=== PATIENT | female | born 1955 | race Caucasian/White ===

== ENCOUNTER 2016-11-29 11:31 | Emergency (ER) | payer BC ==
--- NOTE | 2016-11-29 12:50 | UCPHY ---
H & P Time Seen by Provider: 11/29/16 12:14 Patient Type: Established HPI/ROS: Chief complaint. Sore throat, cough HPI. 61-year-old female presents with sore throat swollen glands for 1 week. Nonproductive cough. Exposed to sick children. Treated for pneumonia 3 weeks ago. She uses Advair as her baseline breathing medication and she has noted some increased need for use of albuterol the last few days. She also has a headache and nausea. No fever ROS Constitutional. no fever/chills, no weakness Eyes. no problems with vision ENT. Sore throat and congestion Cardiovascular. no chest pain Respiratory. Cough Abdominal. Nausea . no problems urinating MS. no calf pain/swelling, no neck/back pain, no joint pain Skin. no rash Lymph. no swollen glands Neuro. Headache Past Medical/Surgical History: Bronchiectasis, hypothyroid, asthma Social History: , nonsmoker, no alcohol Smoking Status: Never smoked Physical Exam: General Appearance: Alert well-developed female mild distress vital signs are stable Eyes: Pupils equal and round no pallor or injection. ENT, tympanic membranes are normal pharynx slightly injected without exudate. Mucous membranes are moist. No significant cervical adenopathy Respiratory: No retractions. Slight end-expiratory rhonchi. Cardiovascular: Regular rate and rhythm. Gastrointestinal: Abdomen is soft and nontender, no masses, bowel sounds normal. Neurological: Awake and alert, sensory and motor exams grossly normal. Skin: Warm and dry, no rashes. Musculoskeletal: Neck is supple nontender. Extremities symmetrical, full range of motion. Psychiatric: Patient is oriented X 3, there is no agitation. Constitutional: Initial Vital Signs Temperature (C) 36.9 C 11/29/16 11:44 Heart Rate 62 11/29/16 11:44 Respiratory Rate 14 11/29/16 11:44 Blood Pressure 101/62 11/29/16 11:44 O2 Sat (%) 96 11/29/16 11:44 O2 Delivery Mode Room Air Allergies/Adverse Reactions: No Known Allergies Allergy (Verified 11/29/16 11:43) Home Medications: Medication Instructions Recorded PROMETRIUM 01/04/10 Proventil 01/04/10 ADVAIR HFA 230-21 MCG INHALER 04/11/16 Synthroid 11/29/16 Vivelle-Dot 0.025MG (*) 11/29/16 Medical Decision Making Procedures: Rapid strep screen negative ED Course/Re-evaluation: On re-evaluation the patient is stable. She and I discussed lab results. She is offered a x-ray of her chest however she declines. I do not really think that she needs one or that will change treatment. She and I discussed treatment plan including criteria for return importance of follow-up and further evaluation. She expresses understanding and agreement. She declines prescription for prednisone Differential Diagnosis: This is likely viral infection. I considered strep throat as well as pneumonia. - Data Points Laboratory Results: 11/29/16 11/29/16 Unknown 11:55 Group A Strep Screen NEGATIVE (NEGATIVE) Group A Strep DNA Pending Departure - Departure Disposition: Home, Routine, Self-Care Clinical Impression: Viral syndrome Condition: Good Instructions: Viral Syndrome (ED) Additional Instructions: Continue the Advair and Proventil. Return for worsening breathing. Recheck with Dr. Smallwood as make in 2-3 days if not improving Referrals: Jay Head MD [Primary Care Provider] - 2-3 days, if not improved - PQRS PQRS Measurement: 134: Depression screening and followup, PRIME MD-PHQ2 (12 years and older) Over the last 2 weeks, how often have you been bothered by any of the following problems? 1. Feeling down, depressed, or hopeless? 2. Little interest or pleasure in doing things? Patient answered no to both 1 and 2 130: Documentation of medications. Reviewed all patient medications, doses, route and frequency. 226: Do you smoke? No.
[2016-11-29 13:03] VITALS: BP 124/73; PULSE 69; RESP 16; TEMP 98.1; O2SAT 95
== END 2016-11-29 13:06 | disposition home or self-care (01) ==
LOC: CED 11:31
DX: B34.9 Viral infection, unspecified (principal); J47.9 Bronchiectasis, uncomplicated; E03.9 Hypothyroidism, unspecified; J45.909 Unspecified asthma, uncomplicated
CPT/HCPCS: 87880-PO; 99214-PO; G0463-PO

== ENCOUNTER → 2016-12-01 | Outpatient (CLI) | payer BC | LOC: FIMAGING 17:24 | PROVIDERS: ATTEND Specialist | DX: R06.00 Dyspnea, unspecified (principal); R91.1 Solitary pulmonary nodule ==

== ENCOUNTER → 2016-12-03 | Outpatient (CLI) | payer BC | LOC: FIMAGING 10:34 | PROVIDERS: ATTEND Specialist | DX: Z13.83 Encounter for screening for respiratory disorder NEC (principal); I25.10 Atherosclerotic heart disease of native coronary artery without angina pectoris ==

== ENCOUNTER 2016-12-05 16:17 | Emergency (ER) | payer BC ==
--- NOTE | 2016-12-05 16:32 | CPEKG ---
Heart Rate: 53 RR Interval: 1132 P-R Interval: 132 QRSD Interval: 82 QT Interval: 476 QTC Interval: 447 P [place]: 67 QRS [place]: 59 T Wave [place]: 53 EKG Severity - ABNORMAL ECG - EKG Impression: SINUS RHYTHM EKG Impression: CONSIDER LEFT VENTRICULAR HYPERTROPHY Electronically Signed By: Shane Viera 06-Dec-2016 10:13:02
[2016-12-05 16:47] VITALS: TEMP 97.9
[2016-12-05] MEDS ORDERED: ASPIRIN 81 MG CHEWABLE TAB PO ONE (17:19)
--- NOTE | 2016-12-05 17:39 | UCPHY ---
H & P Patient Type: Established Chief Complaint Nursing Narrative: pt here for intermittent bilateral non radiating chest pressure and sob x 3 days. pt also states having cough but thinks its residual from having pneumonia which she just finished a month of antibiotics. pt also states having recent chest CT and was noted to have some athrosclerosis. Time Seen by Provider: 12/05/16 16:51 HPI/ROS: CHIEF COMPLAINT: Sense of discomfort across the chest off and on for 3 days HISTORY OF PRESENT ILLNESS: This is a 61-year-old female who has had problems for the last 10 days. Sore throat having been exposed to grandchildren. Her strep results were negative. It was noted that she had had a mild cough and was offered a chest x-ray. Of note is that she was treated on a clinical basis for suspected pneumonia early in October. Those symptoms have pretty much abated until the sore throat started. In the interim some 2 days later she was seen by her baker helper who did not feel or symptoms were allergy related. Thereby chest x-ray was ordered. The chest x -ray showed a questionable nodule thus a CT scan of the chest was performed to further delineate this nodule, 2 days ago. I have reviewed the report. Notably , the nodule was not noted on the CT thereby suggesting was a summation issue. Nonetheless there was some atherosclerosis noted in the coronary arteries, though not graded, as well as mild aortic sclerosis. Furthermore, she does have a problem with chronic anemia and low iron stores in the setting of a chronic idiopathic GI bleed. Thereby every 3-6 months she gets iron infusions with her last being approximately 3 months ago. While her ferritin levels are 27 as a recent blood value, she typically the will receive iron transfusion even in that neighborhood whereby originally she was getting these infusions if her ferritin levels were much lower than that such as 20-22. In the backdrop she has noted even though she is an avid runner that she was having some difficulty over the course of last few months of feeling like she just could not have her usual state of. Approximately a week ago or so she was walking neighborhood pushing a stroller with her grand child and noticed that she just did not seem to have the usual vigor, though this is not accelerating. What prompted her visit today was a sense of discomfort that she has been experiencing over the last 3 days. Typically lasts 30-60 minutes, not related to exertion, subsided spontaneously without particular intervention or rest. Today the discomfort started approximately noon and she contacted her PCP. They discussed a referral to Cardiology and in the interim due to the CT evidence of possible development of atherosclerosis she was sent here for evaluation. Of note whereby the discomfort has been over the last few days lasting 30-60 minutes this particular episode has been ongoing and steady. There has been no associated shortness of breath or diaphoresis. I attempted to explore why she is here is taking much resolved sometime to 3 months ago. While she does report some 'heartburn' she is uncertain if this is recommendation in the setting of the problematic GI bleeding that she has had over the last year. P: No precipitant such as exertion or twisting or bending or taking deep breath Q: Achiness as well as pressure and burning across the upper mid chest R: No radiation into the arms or back or jaw S: Mild T: Started some 3 days ago. Occurring several times a day not exactly be related. Today persistent since noon, approximately 4 hours Cardiac risk factors: Family history. She does not have hypertension, high cholesterol, smoking history, obesity, or diabetes. Pulmonary was risk factors: None Aortic dissection risk factors: None REVIEW OF SYSTEMS: Constitutional: No fever, no chills. Eyes: No discharge ENT: No sore throat. Cardiovascular: See above Respiratory: No cough, shortness of breath, or wheezing. Gastrointestinal: No nausea vomiting or diarrhea. No abdominal pain. Genitourinary: No hematuria or frequency. Musculoskeletal: No back pain. Skin: No rashes. Neurological: No headache. 10 point ROS otherwise negative Source: Patient Exam Limitations: No limitations - Personal History Tetanus Vaccine Date: < 10 years - Medical/Surgical History Hx Asthma: Yes Hx Chronic Respiratory Disease: No Hx Diabetes: No Hx Cardiac Disease: No Hx Renal Disease: No Hx Cirrhosis: No Hx Alcoholism: No Hx HIV/AIDS: No Hx Splenectomy or Spleen Trauma: No Other PMH: hypothyroid, anemia, asthma - Family History Significant Family History: Heart disease (Father who had smoking and diabetes had multiple MIs and on the table for bypass) - Social History Smoking Status: Never smoked Alcohol Use: None Drug Use: None - Physical Exam Exam: General Appearance: Alert, no distress. Afebrile. Normal phonation. No respiratory distress. Thin, petite female. Eyes: Pupils equal and round no pallor or injection. No icterus ENT, Mouth: Mucous membranes moist. Pharynx without erythema or exudate. TM Clear. Neck: No adenopathy. Supple. No JVD. Trachea in midline. Respiratory: There are no retractions, lungs are clear to auscultation. Cardiovascular: Regular rate and rhythm, without murmur. Chest wall nontender. No reproducible chest pain Abdomen: Soft and nontender, no masses, bowel sounds normal. Neurological: Ox3. No motor weakness. Sensation intact. Gait nl. Skin: Warm and dry, no rashes. Musculoskeletal: No joint swelling. Extremities: No edema. Homans sign negative. No cords. Psychiatric: Normal affect. Constitutional: Initial Vital Signs Temperature (C) 36.6 C 12/05/16 16:41 Heart Rate 63 12/05/16 16:41 Respiratory Rate 16 12/05/16 16:41 Blood Pressure 138/80 H 12/05/16 16:41 O2 Sat (%) 98 12/05/16 16:41 O2 Delivery Mode Room Air Allergies/Adverse Reactions: No Known Allergies Allergy (Verified 11/29/16 11:43) Home Medications: Medication Instructions Recorded PROMETRIUM 01/04/10 Proventil 01/04/10 ADVAIR HFA 230-21 MCG INHALER 04/11/16 Synthroid 11/29/16 Vivelle-Dot 0.025MG (*) 11/29/16 Medical Decision Making - Diagnostics EKG Interpretation: EKG. Interpreted by me contemporaneously. Sinus rhythm. Heart rate 53. Voltage criteria for LVH. However ST segments are normal as well as T-wave. No ischemia. Imaging: I reviewed the CT scan report from 2 days ago. ED Course/Re-evaluation: In view of the ongoing discomfort she was given aspirin 324 mg PO. Thereafter she received a GI cocktail consisting of viscous lidocaine with Maalox. This did not seem to improve the discomfort in temporal fashion. Approximately hour later she received nitroglycerin. She did not really care for this sensation and declined to have any more than the 1 single tablet which did not temporally improve her symptoms. However over the course of the next hour at that point in time the symptoms markedly improved. Blood counts were taken compared to priors and she is stable H&H when compared to that of July. Initial troponin was undetectable and a follow-up 1 at 3:00 a.m. was also undetectable. No clinical indication her D-dimer assessment at this time Met with the patient and discussed the rationale approach of outpatient evaluation with strong recommendation for cardiology follow-up being planned for outpatient stress testing. In the interim she should forego any exercise or undue exertion such as lifting. Furthermore she should start taking aspirin 81 mg daily. She have recurrence of symptoms she should present to a local ER. Upon review the case her heart score is as follows: My SCORE HEART: H = Hx Mod 1 E = EKG Nl 0 A = Age 45-64 1 R Risk Factors 1-2 1 T = Troponin Not detected 0 Results: 0-3 1.7% Risk Thereby as her symptoms have resolved and 3 are followup troponin which is essentially is a 7 hour troponins to the onset of symptoms are negative she will be released for outpatient evaluation. 12/06/16: Follow-up courtesy call was placed to the patient. She reports having gone to bed is medically much immediately as soon as she got home and feeling well today with no recurrence of the chest discomfort. She also has a 1 mg of aspirin available at home and has started taking such. She still remains fixed on the prospect of her allergies as well as her low iron stores as being a underlying cause to her symptoms, but nonetheless does plan to follow up with Cardiology in 2 days time when the office is reopened. Differential Diagnosis: Differential diagnosis includes but is not limited to the following: ACS, myocardial infarction, pneumothorax, pleurisy, pulmonary embolus, aortic dissection, anxiety, muscle strain. - Data Points Laboratory Results: Laboratory Results 12/05/16 16:30 12/05/16 16:30 Medications Given: Discontinued Medications Al Hydroxide/Mg Hydroxide (Maalox Susp) 30 ml PO ONCE ONE Stop: 12/05/16 17:41 Last Admin: 12/05/16 18:00 Dose: 30 ml Aspirin (Aspirin) 324 mg PO EDNOW ONE Stop: 12/05/16 17:20 Last Admin: 12/05/16 17:25 Dose: 324 mg Lidocaine (Lidocaine 2% Viscous) 15 ml PO ONCE ONE Stop: 12/05/16 17:41 Last Admin: 12/05/16 18:00 Dose: 15 ml Nitroglycerin (Nitrostat) 0.4 mg SL EDNOW ONE Stop: 12/05/16 19:24 Last Admin: 12/05/16 19:23 Dose: 0.4 mg Departure - Departure Disposition: Home, Routine, Self-Care Clinical Impression: Atypical chest pain Condition: Good Instructions: Chest Pain (ED) Additional Instructions: Beginning tomorrow you take a sprain 81 mg p. o. daily If her symptoms start being associated with sweating or getting worse than you need to go into 1 of the local ERs immediately See the local java groovy developer soon, Call your family doctor on Thursday to arrange such. See our referral. Your hemoglobin/hematocrit numbers from today are as follows: 14.9/44.3. New 9 Hemoglobin/hematocrit numbers from July 28 are as follows: 14.4/43.2. This represents a stable picture of no anemia at this time. While you are able to go for a walk you're not allowed to work out strenuously or push the stroller. Referrals: Vannessa Willis MD [Primary Care Provider] - As per Instructions Inderjit Foote MD [Medical Doctor] - As per Instructions - PQRS PQRS Measurement: NA
[2016-12-05] MEDS ORDERED: LIDOCAINE 2% VISCOUS 15 ML UDCUP PO ONE (17:40)
[2016-12-05] MEDS ORDERED: MAG HYDROX/AL HYDROX/SIMETH 30 ML UDCUP PO ONE (17:40)
[2016-12-05 17:51] LABS: % IMMATURE GRANULYOCYTES 0.1 % (0.0-1.1); ABSOLUTE IMMATURE GRANULOCYTES 0.01 10^3/uL (0.00-0.10); ADD DIFF? NO; ADD MORPH? NO; ADD SCAN? NO; ATYPICAL LYMPHOCYTE FLAG 0 (0-99); FRAGMENT RBC FLAG 0 (0-99); HEMATOCRIT 44.3 % (38.0-47.0); HEMOGLOBIN 14.9 g/dL (12.6-16.3); LEFT SHIFT FLG 0 (0-99); LIPEMIA HEMOLYSIS FLAG 80 (0-99); MEAN CELL HEMOGLOBIN 32.8 pg (27.9-34.1); MEAN CELL HEMOGLOBIN CONCENTR. 33.6 g/dL (32.4-36.7); MEAN CELL VOLUME 97.6 fL (81.5-99.8); MEAN PLATELET VOLUME 9.8 fL (8.7-11.7); PLATELET CLUMPS FLAG 0 (0-99); PLATELET COUNT 321 10^3/uL (150-400); RED BLOOD CELL COUNT 4.54 10^6/uL (4.18-5.33); RED CELL DISTRIBUTION WIDTH 12.9 % (11.5-15.2)
[2016-12-05 18:03] LABS: ANION GAP 14 mEq/L (8-16); CALCIUM 9.8 mg/dL (8.5-10.4); CARBON DIOXIDE 25 mEq/l (22-31); CHLORIDE 101 mEq/L (97-110); CREATININE 0.7 mg/dL (0.6-1.0); GLOMERULAR FILTRATION RATE > 60; GLUCOSE 87 mg/dL (70-100); POTASSIUM 3.8 mEq/L (3.5-5.2); SODIUM 140 mEq/L (134-144)
[2016-12-05 18:17] LABS: TROPONIN I < 0.012 ng/mL (0-0.034)
[2016-12-05] MEDS ORDERED: NITROGLYCERIN 0.4 MG BTL SL ONE ×2 (19:17→19:23)
[2016-12-05 21:40] VITALS: RESP 14
[2016-12-05 21:50] VITALS: BP 114/71; PULSE 56; O2SAT 97
== END 2016-12-05 21:16 | disposition home or self-care (01) ==
LOC: CED 16:17
DX: R07.89 Other chest pain (principal); R06.02 Shortness of breath; R05 Cough; D64.9 Anemia, unspecified; E03.9 Hypothyroidism, unspecified; J45.909 Unspecified asthma, uncomplicated; Z82.49 Family history of ischemic heart disease and other diseases of the circulatory system; Z83.3 Family history of diabetes mellitus
CPT/HCPCS: 80048-PO; 84484-PO; 85025-PO; 93010-PO; 99215-PO; G0463-PO

== ENCOUNTER 2016-12-30 08:47 | Observation (INO) | payer BC ==
[2016-12-30] MEDS ORDERED: NS 1,000 ML IV ONE (08:52)
[2016-12-30] MEDS ORDERED: diphenhydrAMINE 25 MG CAP PO ONE ×2 (08:52→09:14)
[2016-12-30] MEDS ORDERED: DIAZEPAM 5 MG TAB PO ONE (08:52)
[2016-12-30] MEDS ORDERED: ASPIRIN EC 325 MG TAB PO ONE (08:52)
[2016-12-30] MEDS ORDERED: FAMOTIDINE 20 MG TAB PO ONE (08:52)
--- NOTE | 2016-12-30 09:10 | CPEKG ---
Heart Rate: 50 RR Interval: 1200 P-R Interval: 136 QRSD Interval: 80 QT Interval: 460 QTC Interval: 420 P [place]: 61 QRS [place]: 63 T Wave [place]: 60 EKG Severity - ABNORMAL ECG - EKG Impression: SINUS RHYTHM EKG Impression: CONSIDER LEFT VENTRICULAR HYPERTROPHY Electronically Signed By: Kailash Mendoza 31-Dec-2016 14:45:33
[2016-12-30] MEDS ORDERED: FAMOTIDINE 20 MG TAB ONE (09:14)
[2016-12-30] MEDS ORDERED: DIAZEPAM 5 MG TAB ONE (09:14)
[2016-12-30] MEDS ORDERED: ASPIRIN 81 MG CHEWABLE TAB ONE (09:15)
[2016-12-30 09:34] LABS: % IMMATURE GRANULYOCYTES 0.3 % (0.0-1.1); ABSOLUTE IMMATURE GRANULOCYTES 0.02 10^3/uL (0.00-0.10); ADD DIFF? NO; ADD MORPH? NO; ADD SCAN? NO; ATYPICAL LYMPHOCYTE FLAG 20 (0-99); FRAGMENT RBC FLAG 0 (0-99); HEMATOCRIT 44.1 % (38.0-47.0); HEMOGLOBIN 14.4 g/dL (12.6-16.3); LEFT SHIFT FLG 0 (0-99); LIPEMIA HEMOLYSIS FLAG 80 (0-99); MEAN CELL HEMOGLOBIN 32.6 pg (27.9-34.1); MEAN CELL HEMOGLOBIN CONCENTR. 32.7 g/dL (32.4-36.7); MEAN CELL VOLUME 99.8 fL (81.5-99.8); MEAN PLATELET VOLUME 9.6 fL (8.7-11.7); PLATELET CLUMPS FLAG 0 (0-99); PLATELET COUNT 266 10^3/uL (150-400); RED BLOOD CELL COUNT 4.42 10^6/uL (4.18-5.33); RED CELL DISTRIBUTION WIDTH 13.2 % (11.5-15.2)
[2016-12-30 09:42] LABS: INR 1.07 (0.83-1.16); PROTIME(PATIENT) 13.8 SEC (12.0-15.0)
[2016-12-30] MEDS ORDERED: LIDOCAINE 1% 30 ML SDV ONE (09:53)
[2016-12-30] MEDS ORDERED: fentaNYL 100 MCG/2 ML INJ ONE ×2 (09:54→11:54)
[2016-12-30] MEDS ORDERED: HEPARIN 10,000 UNIT/10 ML MDV ONE (09:54)
[2016-12-30] MEDS ORDERED: VERAPAMIL 5 MG/2 ML VIAL ONE (09:54)
[2016-12-30] MEDS ORDERED: MIDAZOLAM 2 MG/2 ML VIAL ONE ×3 (09:54→11:55)
[2016-12-30] MEDS ORDERED: IOPAMIDOL (ISOVUE-370) 150 ML BTL IV ONE (09:54)
[2016-12-30 10:18] LABS: ANION GAP 7 mEq/L (8-16); CALCIUM 9.5 mg/dL (8.5-10.4); CARBON DIOXIDE 29 mEq/l (22-31); CHLORIDE 104 mEq/L (97-110); CHOLESTEROL 155 mg/dL (140-220); CHOLESTEROL/HDL RATIO 1.91 RATIO (1.00-4.44); CREATININE 0.8 mg/dL (0.6-1.0); GLOMERULAR FILTRATION RATE > 60; GLUCOSE 96 mg/dL (70-100); HIGH DENSITY LIPOPROTEIN 81 mg/dL (40-85); LDL/HDL RATIO 0.77 RATIO (1.00-3.22); LOW DENSITY LIPOPROTEIN 62 mg/dL (80-100); MAGNESIUM 2.2 mg/dL (1.6-2.3); NON-HIGH DENSITY LIPOPROTEIN 74 mg/dL (90-129); POTASSIUM 4.2 mEq/L (3.5-5.2); SODIUM 140 mEq/L (134-144); TRIGLYCERIDE 62 mg/dL (35-135); VERY LOW DENSITY LIPOPROTEINS 12 mg/dL (8-25)
[2016-12-30] MEDS ORDERED: NITROGLYCERIN 1,500 MCG/15 ML VIAL MISC ONE (11:03)
[2016-12-30] MEDS ORDERED: ATROPINE SULFATE 1 MG/10 ML SYR ONE (11:18)
[2016-12-30] MEDS ORDERED: CLOPIDOGREL BISULFATE 75 MG TAB ONE (12:24)
--- NOTE | 2016-12-30 12:31 | CPIP ---
[f rep st] INVASIVE CARDIAC PROCEDURE DATE OF PROCEDURE: 12/30/2016 PROCEDURES: 1. Left heart catheterization. 2. Coronary angiography. 3. Left ventriculography. INDICATIONS: New onset angina in a patient with known coronary disease and intermediate risk nuclea r stress test. COMPLICATIONS: None. DESCRIPTION OF PROCEDURE: N.p.o. status was confirmed, informed consent obtained, and timeout perfo rmed. The patient was brought to the catheterization laboratory and prepped and draped in sterile f ashion. Adequate conscious sedation was achieved with Versed and fentanyl IV. 1% lidocaine was use d for local anesthesia of the right groin. Using modified Seldinger technique, a 5-Bulgarian introduce r sheath was placed in the right common femoral artery. JL3.5 and JR4 catheters were used for coron german angiography. Pigtail was used for left ventriculography. FINDINGS: 1. Left main is normal and bifurcates into the LAD and left circumflex. There is approximately 40% mid LAD stenosis. There are 2 principal diagonals. 2. The circumflex is free of any significant disease. There are 2 principle obtuse marginals. 3. Right coronary artery is dominant and free of disease. LEFT VENTRICULOGRAPHY: Left ventricular ejection fraction 65% with normal wall motion. HEMODYNAMICS: Aortic pressure 107/56. LV pressure 102/0 with an end-diastolic pressure of 12. CONCLUSIONS: Intermediate grade LAD lesion. Given the patient's clinical history, concerning exerc ise intolerance, and abnormal stress test, interventional consult was obtained with Dr. Daniels. T his will be performed for further evaluation of the LAD lesion. The patient currently in stable condition. /[id number]/MODL
[2016-12-30] MEDS ORDERED: ATROPINE SULFATE 1 MG/10 ML SYR IVP PRN (12:34)
[2016-12-30] MEDS ORDERED: CLOPIDOGREL BISULFATE 75 MG TAB PO ONE (12:34)
[2016-12-30] MEDS ORDERED: ONDANSETRON 4 MG/2 ML VIAL IVP PRN (12:34)
[2016-12-30] MEDS ORDERED: NITROGLYCERIN 0.4 MG BTL SL PRN (12:34)
--- NOTE | 2016-12-30 12:40 | PDCTREPORT ---
Cardiothoracic Procedure Rpt Cardiothoracic Procedure Report: Procedure: 1. Lad intravascular ultrasound. 2. Primary stenting of the LAD with a 3.0 x 20 mm synergy stent. 3. Post PCI intravascular ultrasound Intervention: I am asked by my partner Dr. Yusuf to perform intravascular ultrasound the proximal LAD in the setting of clinical exertional angina accompanied by abnormal nuclear stress test with anterior ischemia and indeterminate proximal LAD stenosis. Patient was anticoagulated with heparin. Therapeutic ACT was confirmed. Using a 6 [place] EBU 3.5 guiding catheter left main coronary selectively intubated. Using a 0.014 luge wire the LAD was entered and a wire placed in the distal vessel. Intravascular ultrasound was slow pullback was performed. The proximal vessel is heavily calcified. There is a 70% by area stenosis of the proximal LAD. Consultation was obtained with Dr. Yusuf. The setting of symptoms abnormal nuclear stress test was like to proceed with primary stenting. A 3.0 x 20 mm synergy stent was placed on the wire. It was positioned in two views. It was deployed using a single inflation. Repeat intravascular ultrasound revealed the stent to be under deployed in its mid segment. A 3.5 x 12 mm quantum balloon was used to post dilate the stent. Final orthogonal angiograms were obtained. Conclusions: Successful PCI and stenting of the proximal LAD with intravascular ultrasound guidance. Continue dual antiplatelet therapy for at least 3 months. Aggressive secondary prevention. Clinical follow-up Dr. Yusuf. Patient Problems: Problems Problem Status Onset Status post insertion of drug-eluting stent into left anterior descending (LAD) artery Acute Coronary artery disease Acute Angina effort Acute
--- NOTE | 2016-12-30 12:48 | CPEKG ---
Heart Rate: 51 RR Interval: 1176 P-R Interval: 132 QRSD Interval: 84 QT Interval: 456 QTC Interval: 420 P [place]: 66 QRS [place]: 61 T Wave [place]: 47 EKG Severity - NORMAL ECG - EKG Impression: SINUS RHYTHM Electronically Signed By: Kailash Mendoza 31-Dec-2016 14:45:44
--- NOTE | 2016-12-30 13:26 | CPEKG ---
Heart Rate: 54 RR Interval: 1111 P-R Interval: 132 QRSD Interval: 76 QT Interval: 472 QTC Interval: 448 P [place]: 66 QRS [place]: 57 T Wave [place]: 50 EKG Severity - NORMAL ECG - EKG Impression: SINUS RHYTHM Electronically Signed By: Kailash Mendoza 31-Dec-2016 14:45:53
[2016-12-30] MEDS ORDERED: CALCIUM CARBONATE 500 MG CHEWABLE TAB PO ONE (13:30)
[2016-12-30] MEDS ORDERED: ACETAMINOPHEN 325 MG TAB ONE (14:38)
[2016-12-30] MEDS ORDERED: ACETAMINOPHEN 325 MG TAB PO ONE (15:00)
[2016-12-30] MEDS ORDERED: ALBUTEROL 60 PUFFS/8 GM MDI IH PRN (16:05)
[2016-12-30 20:29] VITALS: RESP 16
[2016-12-30] MEDS ORDERED: CALCIUM CARB W/VIT D 500 MG TAB PO SCH (21:00)
[2016-12-30] MEDS ORDERED: MAGNESIUM CITRATE 100 MG PO SCH (21:00)
[2016-12-30] MEDS ORDERED: PROGESTERONE,MICR 100 MG CAP PO SCH (21:00)
[2016-12-30] MEDS ORDERED: PRAMIPEXOLE 0.25 MG TAB PO SCH (21:00)
[2016-12-30] MEDS ORDERED: PANTOPRAZOLE SODIUM 40 MG TAB PO SCH (21:00)
[2016-12-30] MEDS ORDERED: ATORVASTATIN CALCIUM 20 MG TAB PO SCH (21:00)
[2016-12-31] MEDS ORDERED: LEVOTHYROXINE 75 MCG TAB PO SCH (05:00)
[2016-12-31 05:24] VITALS: O2SAT 95
[2016-12-31 05:34] LABS: % IMMATURE GRANULYOCYTES 0.3 % (0.0-1.1); ABSOLUTE IMMATURE GRANULOCYTES 0.02 10^3/uL (0.00-0.10); ADD DIFF? NO; ADD MORPH? NO; ADD SCAN? NO; ATYPICAL LYMPHOCYTE FLAG 10 (0-99); FRAGMENT RBC FLAG 0 (0-99); HEMATOCRIT 41.7 % (38.0-47.0); HEMOGLOBIN 13.8 g/dL (12.6-16.3); LEFT SHIFT FLG 0 (0-99); LIPEMIA HEMOLYSIS FLAG 80 (0-99); MEAN CELL HEMOGLOBIN 32.8 pg (27.9-34.1); MEAN CELL HEMOGLOBIN CONCENTR. 33.1 g/dL (32.4-36.7); MEAN PLATELET VOLUME 9.9 fL (8.7-11.7); PLATELET CLUMPS FLAG 0 (0-99); PLATELET COUNT 264 10^3/uL (150-400); RED BLOOD CELL COUNT 4.21 10^6/uL (4.18-5.33); RED CELL DISTRIBUTION WIDTH 13.2 % (11.5-15.2)
[2016-12-31 05:46] LABS: ALBUMIN 3.5 g/dL (3.5-5.0); ANION GAP 5 mEq/L (8-16); ASPARTATE AMINOTRANSFERASE 32 IU/L (14-46); BILIRUBIN,TOTAL 0.7 mg/dL (0.1-1.4); CALCIUM 9.4 mg/dL (8.5-10.4); CARBON DIOXIDE 25 mEq/l (22-31); CHLORIDE 106 mEq/L (97-110); CREATININE 0.7 mg/dL (0.6-1.0); GLOMERULAR FILTRATION RATE > 60; GLUCOSE 87 mg/dL (70-100); LACTATE DEHYDROGENASE 414 IU/L (313-618); MAGNESIUM 1.9 mg/dL (1.6-2.3); POTASSIUM 4.4 mEq/L (3.5-5.2); SODIUM 136 mEq/L (134-144)
[2016-12-31 07:46] VITALS: BP 99/67; PULSE 71; TEMP 99.2
[2016-12-31] MEDS ORDERED: ASPIRIN EC 325 MG TAB PO SCH (09:00)
[2016-12-31] MEDS ORDERED: FLUTICASONE NASAL 120 SPRAYS/16 GM MDI EACHNARE SCH (09:00)
[2016-12-31] MEDS ORDERED: CLOPIDOGREL BISULFATE 75 MG TAB PO SCH (09:00)
[2016-12-31] MEDS ORDERED: CETIRIZINE 10 MG TAB PO SCH (09:00)
--- NOTE | 2016-12-31 09:07 | CPEKG ---
Heart Rate: 60 RR Interval: 1000 P-R Interval: 104 QRSD Interval: 82 QT Interval: 412 QTC Interval: 412 P [place]: -2 QRS [place]: 71 T Wave [place]: 63 EKG Severity - ABNORMAL ECG - EKG Impression: SINUS RHYTHM EKG Impression: SHORT MA INTERVAL, ACCELERATED AV CONDUCTION EKG Impression: CONSIDER LEFT VENTRICULAR HYPERTROPHY Electronically Signed By: Bernardino Brown 01-Jan-2017 08:02:15
[2016-12-31] MEDS ORDERED: PSYLLIUM METAMUCIL 1 PKT PO SCH (14:00)
[2017-01-01] MEDS ORDERED: ESTRADIOL 42.5 GM CRTUBE VG SCH (09:00)
--- NOTE | 2017-01-01 16:16 | GDS ---
[f rep st] DISCHARGE SUMMARY ADMISSION DIAGNOSES: 1. Coronary artery disease. 2. Anginal symptoms. 3. Planned cardiac angiogram with possible stent placement. DISCHARGE DIAGNOSIS: Status post coronary angiogram finding occlusion of the left anterior descending with placement of Synergy drug-eluting stent. COURSE OF HOSPITALIZATION: The patient was seen in clinic by Dr. Yusuf, having known coronary artery disease. She had a nuclear stress test, which did indicate cardiac ischemia. She advised proceeding to cardiac catheterization for further evaluation. The patient was having anginal symptoms, especially post exercise. She is an avid runner, and was feeling extremely exhausted with the onset of chest discomfort. She was taken to the cardiac research laboratory technician by Dr. Mariella Yusuf on December 30, 2016, after previously having an abnormal nuclear stress test with anterior ischemia. She did find the proximal LAD heavily calcified. There was a 70% stenosis of the proximal LAD. She then asked Dr. Daniels to intervene. He was able to place a Synergy drug-eluting stent to the proximal LAD with no complications, utilizing intravascular ultrasound guidance. She will be managed on dual anti-platelet therapy over the next year. Aggressive secondary prevention is recommended. She will follow up with Dr. Yusuf. She has had no complications post cardiac angiogram. She has been up in her room ambulating and in the baum with no chest pain or groin complications. She is very interested in participating in cardiac rehab, and this has been ordered. At this time, she feels stable. MEDICATIONS: She will go home on Zyrtec 10 mg daily, Mirapex 0.25 mg at bedtime , Synthroid 75 mcg Thursday, Thursday, Thursday, , Thursday, Vivelle-Dot 0.025 mg 1 patch topical Thursday and Thursday, Synthroid 50 mcg daily, Proventil inhaler 1-2 puffs inhaled daily as needed, Prilosec 20 mg at bedtime, progesterone 100 mg at bedtime, Flonase nasal spray 1 spray daily, Metamucil 3 capsules daily, Mag citrate 100 mg at bedtime, Estrace vaginal 1 application vaginally Thursday and , calcium citrate/vitamin D3 one tab at bedtime, Lipitor 20 mg at bedtime, aspirin 325 mg daily, Plavix 75 mg daily, nitroglycerin 0.4 mg as needed for chest pain taking 1 tablet and waiting 5 minutes before a second tablet and again waiting 5 minutes before taking a third tablet. PHYSICAL EXAM: VITAL SIGNS: On day of discharge, blood pressure 99/67, heart rate 71 and regular, oxygen saturation 95%, temperature 37.3. EKG showed a sinus bradycardia. CARDIAC: Heart rate regular. No murmurs rubs, or gallops. RESPIRATORY: Lung sounds are clear to auscultation. No wheezes, rales, or rhonchi. ABDOMEN: Groin site intact with no bleeding or induration. EXTREMITIES: Peripheral pulses 2+ bilaterally. DISCHARGE PLAN: 1. She is to refrain from heavy lifting, pushing, or pulling for 7 days for anything greater than 10 pounds. No tub baths for 7 days. Okay to walk and gradually increased distance over the first week. No aggressive exercise, including running for 2 weeks. Slowly ease into exercise. 2. Participate in cardiac rehab. 3. Keep bowels soft and prevent bearing down over the first week. Apply firm pressure to groin site area when bearing down for the first week. 4. Follow up with Dr. Yusuf in 1 week. 5. Call [facility] for any questions or concerns. At this time, she currently is stable for discharge. /[id number]/MODL MTDD
[2017-01-03] MEDS ORDERED: LEVOTHYROXINE 50 MCG TAB PO SCH (06:00)
== END 2016-12-31 12:00 | disposition home or self-care (01) ==
LOC: FCATH 08:47 → F2W 12:34
PROVIDERS: ADMIT Internal Medicine Interventional Cardiology; ATTEND Internal Medicine Interventional Cardiology
DX: I25.119 Atherosclerotic heart disease of native coronary artery with unspecified angina pectoris (principal); G25.81 Restless legs syndrome; M81.0 Age-related osteoporosis without current pathological fracture; J45.909 Unspecified asthma, uncomplicated
CPT/HCPCS: 92928; 92978; 93005; 93458; C1725; C1753; C1769; C1887; G0378; C1760; C1874; C9600; J0461; J1644; J2250; J3010; Q9967

== ENCOUNTER → 2017-01-16 | Outpatient (CLI) | payer BC | LOC: FIMAGING 15:01 | PROVIDERS: ATTEND Internal Medicine Cardiovascular Disease | DX: R16.0 Hepatomegaly, not elsewhere classified (principal); K76.0 Fatty (change of) liver, not elsewhere classified ==

== ENCOUNTER → 2017-01-23 | Outpatient (CLI) | payer BC ==
[~2017-01-23] MED LIST: IOPAMIDOL (ISOVUE-300) 100 ML BTL ONE
== END ==
LOC: FIMAGING 09:39
PROVIDERS: ATTEND Physician Assistant Medical
DX: R93.2 Abnormal findings on diagnostic imaging of liver and biliary tract (principal); K57.30 Diverticulosis of large intestine without perforation or abscess without bleeding; I70.0 Atherosclerosis of aorta; M47.897 Other spondylosis, lumbosacral region; M48.07 Spinal stenosis, lumbosacral region
CPT/HCPCS: Q9967

== ENCOUNTER 2017-04-13 17:51 | Observation (INO) | payer BC ==
--- NOTE | 2017-04-13 18:18 | EDPHY ---
H & P Time Seen by Provider: 04/13/17 18:12 HPI/ROS: CHIEF COMPLAINT: Chest pain HISTORY OF PRESENT ILLNESS: The patient is a 62-year-old female with CAD, s/p cardiac stent placement 12/2016, who presents with chest pain. Onset of a burning sensation in her chest last night, associated with palpitations and diaphoresis. She was symptomatic at bedtime, but went to sleep and awoke without symptoms. Today around 3pm she developed a recurrent burning sensation in her chest. The burning is moderate and persistent. She took a Nitro prior to arrival which improved the pain. Similar sx prior to stent placement. Patient takes 81mg Aspirin daily. She denies lower extremity pain or swelling. No shortness of breath or nausea. REVIEW OF SYSTEMS: A comprehensive 10 point review of systems is otherwise negative aside from elements mentioned in the history of present illness. Past Medical/Surgical History: Asthma, Cardiac stent, LAD. Social History: . Lives with at home. Smoking Status: Never smoked Physical Exam: General Appearance: Alert, pleasant Eyes: Pupils equal and round, no conjunctival pallor or injection ENT, Mouth: Mucous membranes moist Neck: Normal inspection Respiratory: Lungs are clear to auscultation Cardiovascular: Regular rate and rhythm Gastrointestinal: Abdomen is soft and non-tender Neurological: A&O, nonfocal exam Skin: Warm and dry, no rash Extremities: Nontender, no pedal edema Psychiatric: Mood and affect normal Constitutional: Initial Vital Signs Temperature (C) 36.6 C 04/13/17 17:56 Heart Rate 59 L 04/13/17 17:56 Respiratory Rate 18 04/13/17 17:56 Blood Pressure 119/70 04/13/17 17:56 O2 Sat (%) 99 04/13/17 17:56 O2 Delivery Mode Nasal Cannula O2 (L/minute) 2 Allergies/Adverse Reactions: gluten Allergy (Verified 04/13/17 17:55) ipratropium [From Atrovent] Allergy (Verified 04/13/17 17:55) lactose Allergy (Verified 04/13/17 17:55) Home Medications: Medication Instructions Recorded Albuterol [Proventil Inhaler HFA 1 - 2 puffs IH DAILY PRN 12/30/16 (*)] Calcium Citrate/Vitamin D3 1 tab PO DAILY 12/30/16 [Calcium Citrate - Vit D Caplet] Cetirizine [ZyrTEC 10 mg (*)] 10 mg PO DAILY 12/30/16 Fluticasone/Salmeter 500/50Mcg 1 puffs IH BID 12/30/16 [Advair 500/50 (*)] Magnesium Citrate 100 mg PO DAILY 12/30/16 Pramipexole Di-HCl [Mirapex 0.25 0.25 mg PO HS 12/30/16 mg (*)] Nitroglycerin [Nitrostat 0.4 mg 0.4 mg SL ONCE PRN #30 btl 12/31/16 (*)] Acetaminophen [Tylenol ES 500 mg 500 mg PO Q6 PRN 04/13/17 (*)] Aspirin EC [Aspirin EC 81 mg (*)] 81 mg PO DAILY 04/13/17 Cholecalciferol Vit D3 [Vitamin D3 1,000 units PO DAILY 04/13/17 (*)] Clopidogrel Bisulfate [Plavix (*)] 75 mg PO HS 04/13/17 L.acidoph,Paracasei, B.lactis 1 each PO DAILY 04/13/17 [Probiotic] Levothyroxine [Synthroid 88 mcg 88 mcg PO DAILY06 04/13/17 (*)] Omeprazole 40 mg PO DAILY@17 04/13/17 Rosuvastatin Calcium [Crestor 5mg] 2.5 mg PO HS 04/13/17 Famotidine [Pepcid 20 MG (*)] 20 mg PO DAILY PRN #30 tab 04/14/17 Medical Decision Making - Diagnostics EKG Interpretation: EKG interpreted by me reveals normal sinus rhythm, rate 53, LVH. ST and T segments normal. No change from prior EKG. Imaging: I viewed and interpreted images myself ED Course/Re-evaluation: Clinical presentation concerning for ACS in this pt with known CAD and stent placement 3 months ago. stat EKG reveals no evidence of ischemia or dysrhythmia. Pt already took an ASA today. youth nutritional monitor: NSR throughout. Initial troponin negative. I do not suspect PE in this pt; no RF, normal VS/O2 sat. This pt will need serial troponins and consideration for cardiac cath in am. CP resolved in ED. 1950: I consulted the hospitalist, Dr. Nunn, who accepts patient for admission. Differential Diagnosis: includes though not limited to ACS, PE, PTX, pneumonia, GERD, dissection - Data Points Laboratory Results: Laboratory Results 04/13/17 18:27 04/13/17 18:27 Medications Given: Discontinued Medications Acetaminophen (Tylenol) 650 mg PO Q4HRS PRN PRN Reason: Pain, Mild/Fever, Can Take PO Stop: 10/10/17 20:30 Last Admin: 04/14/17 16:01 Dose: 650 mg Al Hydroxide/Mg Hydroxide (Maalox Susp) 30 ml PO ONCE ONE Stop: 04/14/17 11:01 Last Admin: 04/14/17 12:20 Dose: 30 ml Aspirin Buffered (Aspirin Ec) 81 mg PO DAILY PETROS Stop: 10/11/17 08:59 Last Admin: 04/14/17 12:24 Dose: 81 mg Calcium/Vitamin D (Calcium Carb W/Vit D) 1 mg PO DAILY PETROS Stop: 10/11/17 08:59 Last Admin: 04/14/17 12:41 Dose: Not Given Cetirizine HCl (Zyrtec) 10 mg PO DAILY PETROS Stop: 10/11/17 08:59 Last Admin: 04/14/17 12:24 Dose: 10 mg Cholecalciferol (Vitamin D) 1,000 units PO DAILY PETROS Stop: 10/11/17 08:59 Last Admin: 04/14/17 12:24 Dose: 1,000 units Clopidogrel Bisulfate (Plavix) 75 mg PO HS [facility] Stop: 10/10/17 20:59 Last Admin: 04/13/17 22:29 Dose: 75 mg Hyoscyamine Sulfate (Levsin, Hyomax-Sl) 0.25 mg PO ONCE ONE Stop: 04/14/17 11:01 Last Admin: 04/14/17 12:20 Dose: 0.25 mg Levothyroxine Sodium (Synthroid) [address] [facility] Stop: 10/11/17 05:59 Last Admin: 04/14/17 06:45 Dose: Not Given Lidocaine (Lidocaine 2% Viscous) 15 ml PO ONCE ONE Stop: 04/14/17 11:01 Last Admin: 04/14/17 11:10 Dose: 15 ml Magnesium Oxide (Magnesium Oxide) 400 mg PO DAILY PETROS Stop: 10/11/17 08:59 Last Admin: 04/14/17 12:23 Dose: 400 mg Miscellaneous Medication (L.Acidoph,Paracasei, B.Lactis [Probiotic]) 1 each PO DAILY PETROS Stop: 10/11/17 08:59 Last Admin: 04/14/17 12:25 Dose: Not Given Miscellaneous Medication (Rosuvastatin Calcium [Crestor 5mg]) 2.5 mg PO HS PETROS Stop: 10/10/17 20:59 Last Admin: 04/13/17 22:37 Dose: Not Given Pramipexole Dihydrochloride (Mirapex) 0.25 mg PO HS PETROS Stop: 10/10/17 20:59 Last Admin: 04/13/17 22:29 Dose: 0.25 mg Fluticasone/Salmeterol (Advair) 1 puffs IH BID PETROS Stop: 10/10/17 20:59 Last Admin: 04/14/17 08:12 Dose: Not Given Departure - Departure Disposition: [facility] Inpatient Acute Clinical Impression: Chest pain Qualifiers: Chest pain type: unspecified Qualified Code(s): R07.9 - Chest pain, unspecified Condition: Good Report Scribed for: Olga Monterroso Report Scribed by: Rebecca Eric Date of Report: 04/13/17 Time of Report: 18:18 Physician Review and Approval Statement: 04/13/17 18:18 Portions of this note were transcribed by a medical claims processor. I personally performed the history, physical exam, and medical decision-making; and confirmed the accuracy of the information in the transcribed note.
[2017-04-13 18:34] LABS: % IMMATURE GRANULYOCYTES 0.2 % (0.0-1.1); ABSOLUTE IMMATURE GRANULOCYTES 0.01 10^3/uL (0.00-0.10); ADD DIFF? NO; ADD MORPH? NO; ADD SCAN? NO; ATYPICAL LYMPHOCYTE FLAG 10 (0-99); FRAGMENT RBC FLAG 0 (0-99); HEMATOCRIT 43.1 % (38.0-47.0); HEMOGLOBIN 14.7 g/dL (12.6-16.3); LEFT SHIFT FLG 0 (0-99); LIPEMIA HEMOLYSIS FLAG 90 (0-99); MEAN CELL HEMOGLOBIN 33.9 pg (27.9-34.1); MEAN CELL HEMOGLOBIN CONCENTR. 34.1 g/dL (32.4-36.7); MEAN CELL VOLUME 99.5 fL (81.5-99.8); MEAN PLATELET VOLUME 9.6 fL (8.7-11.7); PLATELET CLUMPS FLAG 10 (0-99); PLATELET COUNT 263 10^3/uL (150-400); RED BLOOD CELL COUNT 4.33 10^6/uL (4.18-5.33); RED CELL DISTRIBUTION WIDTH 12.6 % (11.5-15.2)
--- NOTE | 2017-04-13 18:44 | CPEKG ---
Heart Rate: 53 RR Interval: 1132 P-R Interval: 120 QRSD Interval: 82 QT Interval: 476 QTC Interval: 447 P Monson: 70 QRS Monson: 56 T Wave Monson: 49 EKG Severity - ABNORMAL ECG - EKG Impression: SINUS RHYTHM EKG Impression: CONSIDER LEFT VENTRICULAR HYPERTROPHY Electronically Signed By: Olga Monterroso 13-Apr-2017 21:41:03
[2017-04-13 19:09] LABS: ANION GAP 13 mEq/L (8-16); CARBON DIOXIDE 24 mEq/l (22-31); CHLORIDE 102 mEq/L (97-110); CREATININE 0.7 mg/dL (0.6-1.0); GLOMERULAR FILTRATION RATE > 60; GLUCOSE 90 mg/dL (70-100); POTASSIUM 3.7 mEq/L (3.5-5.2); SODIUM 139 mEq/L (134-144)
[2017-04-13 19:17] LABS: TROPONIN I < 0.012 ng/mL (0.000-0.034)
[2017-04-13] MEDS ORDERED: ACETAMINOPHEN 325 MG TAB PO PRN (20:31)
[2017-04-13] MEDS ORDERED: ONDANSETRON 4 MG/2 ML VIAL IVP PRN (20:31)
[2017-04-13] MEDS ORDERED: ONDANSETRON DISINTEGRATING 4 MG TAB PO PRN (20:31)
[2017-04-13] MEDS ORDERED: ACETAMINOPHEN 500 MG TAB PO PRN (20:37)
[2017-04-13] MEDS ORDERED: ALBUTEROL 200 PUFFS/18 GM MDI IH PRN (20:37)
[2017-04-13] MEDS ORDERED: NITROGLYCERIN 0.4 MG BTL SL PRN (20:37)
[2017-04-13] MEDS ORDERED: PRAMIPEXOLE 0.25 MG TAB PO SCH (21:00)
[2017-04-13] MEDS ORDERED: ROSUVASTATIN CALCIUM PO SCH (21:00)
[2017-04-13] MEDS ORDERED: CLOPIDOGREL BISULFATE 75 MG TAB PO SCH (21:00)
--- NOTE | 2017-04-13 21:22 | GHP ---
[f rep st] HISTORY AND PHYSICAL DATE OF ADMISSION: 04/13/2017 CHIEF COMPLAINT: Ms. Davila is a pleasant 62-year-old female with a history of coronary artery diseas e and a recently placed LAD stent, who presents with epigastric burning. These are symptoms similar to her anginal symptoms. Yesterday, she went for a 30 mile bike ride, which is about average for h er, and she felt okay during it. In the afternoon, she was doing some gardening, spending some time with her grandchildren. She felt fatigued. She had caffeine late in the day. She felt maybe this had something to do with it. She felt almost as if she was going to fall asleep and she was out wo rking in the hot sun. At night, she lied down and she had a bit of orthopnea, as well as palpitation s and this chest burning, which appears to be her anginal equivalent. She has been taking her aspir in and Plavix and has noted today she woke up, but she did not feel great. She is spending some josé miguel e taking care of her grandchildren as her daughter is working and her son-in-law is traveling. She had some more epigastric burning and ultimately called her prenatal teacher's office, and then sought ca re, and was referred to the emergency department. She notes symptomatic improvement with oxygen the rapy. No fever or chills. No cough. No sputum. REVIEW OF SYSTEMS: A complete 10-point review of systems conducted negative except as noted in the HPI. PAST MEDICAL HISTORY: 1. Asthma. 2. Coronary artery disease. 3. Elevated LFTs to statins. 4. Hypothyroidism. 5. Seasonal allergies. 6. Hyperlipidemia. ALLERGIES: Gluten, ipratropium, and lactose. MEDICATIONS ARE: Tylenol, albuterol, enteric-coated aspirin, calcium citrate, cetirizine, vitamin D 3, Plavix, Advair, probiotics, levothyroxine, magnesium citrate, nitroglycerin, omeprazole, pramipex ole, rosuvastatin. SOCIAL HISTORY: She lives in [place], enjoys exercise. No tobacco, no alcohol. FAMILY HISTORY: Notable for early vascular disease. PHYSICAL EXAMINATION: VITAL SIGNS: Temp 36.6, blood pressure 119/70, pulse 59, breathing 18 times a minute, 99% on room air. GENERAL: In no acute distress. HEENT: Sclerae anicteric. Oropharynx clear. Mucous membranes moist. NECK: Supple without lymphadenopathy or JVD. LUNGS: Clear to aus cultation bilaterally. HEART: S1, S2. ABDOMEN: Soft, nontender, nondistended. LOWER EXTREMITIES : Without edema. Calves are nontender. SKIN: Without rash. NEUROLOGIC EXAM: Nonfocal. LABORATORY DATA: Sodium 139, potassium 3.7, chloride 102, bicarb 24, BUN 6, creatinine 0.7. Tropon in less than 0.012. White count 5.4, hematocrit 43, platelets 263,000. I have discussed the case with Dr. Bernardino Brown and Dr. Rosalba Monterroso. EKG, interpreted by me, shows sinus at 53 with normal axis and intervals. No ST or T-wave changes, other than a T-wave inversion in V2, which looks an awful lot like V1. Compared with an EKG of 12/29, the V2 looks different. However, lead placement may be a factor. ASSESSMENT/PLAN: A 62-year-old female with coronary disease and recent stent, presents with angina. 1. Angina. I do not think this represents acute coronary syndrome or in-stent thrombosis. The pat ient has a relatively benign looking EKG with the possibility of a single lead change in lead V2 mary t may be attributable to lead placement. Therefore, I think heparin therapy is not warranted at thi s time. She has been taking her dual antiplatelet therapy. For now, we will cycle her troponins, f ollow her on telemetry and make her n.p.o. For a possible angiogram in the morning. I think a retur n to stress test is probably less helpful. 2. Elevated liver function tests or some liver function tests in the morning. She has been struggl ing to find a statin that does not cause elevated liver function tests. 3. Asthma. Continue her medications. 4. Hypothyroidism. Continue her medications. 5. Low BUN attributable to low body mass. DISPOSITION: Observation status. /[id number]/MODL
[2017-04-13] MEDS: FLUTICASONE/SALMETER 500/50MCG DISKUS IH SCH (22:00)
[2017-04-14 04:22] LABS: ALBUMIN 3.7 g/dL (3.5-5.0); BILIRUBIN,TOTAL 0.4 mg/dL (0.1-1.4); BILIRUBIN-CONJUGATED 0.3 mg/dL (0.0-0.5); BILIRUBIN-UNCONJUGATED 0.1 mg/dL (0.0-1.1); TOTAL PROTEIN 5.8 g/dL (6.3-8.2)
[2017-04-14] MEDS ORDERED: LEVOTHYROXINE 88 MCG TAB PO SCH (06:00)
[2017-04-14] MEDS: FLUTICASONE/SALMETER 500/50MCG DISKUS IH SCH (08:12)
[2017-04-14] MEDS ORDERED: CALCIUM CARB W/VIT D 500 MG TAB PO SCH ×2 (09:00→21:00)
[2017-04-14] MEDS ORDERED: MAGNESIUM OXIDE 400 MG TAB PO SCH (09:00)
[2017-04-14] MEDS ORDERED: ASPIRIN EC 81 MG TAB PO SCH (09:00)
[2017-04-14] MEDS ORDERED: CETIRIZINE 10 MG TAB PO SCH (09:00)
[2017-04-14] MEDS ORDERED: CHOLECALCIFEROL VIT D3 1,000 UNITS TAB PO SCH (09:00)
[2017-04-14] MEDS ORDERED: L.Acidoph,Paracasei, B.Lactis [Probiotic] PO SCH (09:00)
--- NOTE | 2017-04-14 09:16 | CPEKG ---
Heart Rate: 48 RR Interval: 1250 P-R Interval: 124 QRSD Interval: 78 QT Interval: 476 QTC Interval: 426 P Retsof: 74 QRS Retsof: 66 T Wave Retsof: 61 EKG Severity - OTHERWISE NORMAL ECG - EKG Impression: SINUS BRADYCARDIA Electronically Signed By: Kailash Mendoza 14-Apr-2017 13:15:18
[2017-04-14] MEDS ORDERED: LIDOCAINE 2% VISCOUS 15 ML UDCUP PO ONE (11:00)
[2017-04-14] MEDS ORDERED: MAG HYDROX/AL HYDROX/SIMETH 30 ML UDCUP PO ONE (11:00)
[2017-04-14] MEDS ORDERED: HYOSCYAMINE SULFATE 0.125 MG TAB PO ONE (11:00)
[2017-04-14 12:02] VITALS: BP 125/80; PULSE 75; RESP 19; TEMP 100.2; O2SAT 96
--- NOTE | 2017-04-14 12:43 | GCON ---
[f rep st] CONSULTATION CARDIOLOGY CONSULTATION DATE OF CONSULTATION: 04/14/2017 CHIEF COMPLAINT: Chest pain. HISTORY OF PRESENT ILLNESS: We were asked by Dr. Mclean to visit with the patient. The patient is known to me from both the inpatient and the outpatient setting. She is a pleasant 62-year-old fema le with a history of coronary artery disease status post LAD stenting in December 2016. She has a histor y of intestinal AVM with chronic slow GI bleed and irritable bowel syndrome. She was in her usual state of reasonably good health until Thursday. She had a couple of days of naus ea. She had intermittent sweatiness. On Thursday, she went for a bike ride and felt fine. Later , she was gardening, and it was quite warm out. She was sweating quite a bit. She went inside and started to have some chest burning. She also felt somewhat short of breath. She relaxed and l ay down. She felt that her heart was beating faster but not irregularly. No presyncope or syncope. She was able to sleep that night. The next day, she felt fairly well; however, in the afternoon, she started to have the chest burning again. This seemed worse when she walked up stairs. She took a nitroglycerin, which did not help the discomfort. She also took her usual omeprazole. She su d our office and was instructed to come to the ER for further evaluation. She was admitted overnigh t. She has had 3 negative troponins and a normal BNP. Her EKG is unchanged from several previous EKGs. Upon my evaluation, she reports that she is having intermittent chest burning, but it is better th an when she first came in. REVIEW OF SYSTEMS: A full 10-point review of systems is performed and is negative except that which is outlined above. As mentioned, she has been nauseated a few days prior to admission with slightl y decreased oral intake. She is also followed closely by GI and recently had some blood work done t o follow her known mildly elevated LFTs. ALLERGIES: Gluten, ipratropium, lactulose. PAST MEDICAL HISTORY: 1. Coronary artery disease with LAD stenting in December of this year. 2. AVM of the intestine. 3. Asthma. 4. Gestational diabetes. 5. Irritable bowel syndrome. 6. Abnormal LFTs. 7. Hypothyroidism. 8. Restless legs. OUTPATIENT MEDICATIONS: Aspirin 81 mg daily, Plavix 75 mg daily, Tylenol p.r.n., Proventil inhaler, Zyrtec, vitamin D3, Synthroid 80 mcg, Mirapex, and Crestor 2.5 mg at night. SOCIAL HISTORY: The patient is . She does not smoke cigarettes or drink alcohol. FAMILY HISTORY: Premature vascular disease. PHYSICAL EXAMINATION: VITAL SIGNS: Blood pressure 109/71, heart rate 58, oxygen saturation 97% on room air, respiratory rate is 14. She is afebrile. GENERAL: Well-appearing older female in no acu te distress. HEENT: Sclerae clear and free of jaundice. Mucous members are moist. CARDIOVASCULAR : JVP is less than 10. Regular rate and rhythm with soft early systolic murmur at the left lower s ternal border. No rub or gallop. LUNGS: Clear to auscultation without wheezes, rhonchi, or rales. ABDOMEN: Soft, nontender, nondistended without bruits, masses, or hepatosplenomegaly. EXTREMITIE S: Warm, well perfused without cyanosis, clubbing, or edema. She has scattered ecchymoses. LABORATORY DATA: CBC is normal. Basic metabolic panel is normal. ALT slightly elevated at 55. Tr oponin negative x3. BNP normal at 84. Total protein slightly low at 5.8. Serial EKGs are reviewed. Sinus rhythm and sinus bradycardia with nonspecific anterior T-wave abnor malities. Unchanged compared with previous tracings over the past several months. Chest x-ray, reviewed by me, shows no acute cardiopulmonary process. ASSESSMENT AND PLAN: A 62-year-old female with known coronary disease and LAD stenting approximatel y 3 months ago. She presents with chest burning that was reminiscent of her prior anginal equivalen t; however, EKG is unchanged, serial troponins are completely negative despite several hours of symp toms, normal BNP is also reassuring. 1. Chest pain: Differential includes acute coronary syndrome versus gastrointestinal. My suspicio n for ACS is low given her reassuring objective findings as detailed above. We will attempt GI cock tail. Continue her proton pump inhibitor and probiotics. I have scheduled her for exercise nuclear stress test later today. If this is at all abnormal, we will proceed with coronary angiography. 2. History of irritable bowel syndrome and mildly abnormal LFTs: She is followed closely by MG. Rufus flor mentioned, her symptoms may be GI in etiology. We will add GI cocktail. May need to add H2 block er. She may be having side effects from her dual antiplatelet therapy, but we need to continue this given her fairly recent stent implantation. 3. Hypothyroidism: Last TSH was normal in October 2015. Outpatient followup. 4. Dyslipidemia: Continue Crestor. Her LDL was 62 in December. Thank you for allowing us to participate in this patient's care. We will follow with you. /[id number]/MODL
--- NOTE | 2017-04-14 14:34 | PDCARST ---
CAR Stress Test Results Type of Stress Test: Nuclear TM stess test Indication: chest pain Description of Procedure: After informed consent was obtained, pt was exercised according to Cooper Protocol. Monitoring was performed with standard stress ice guard tester electrode placement. Vital signs were monitored according to protocol throughout the procedure. STRESS EKG AND HEMODYNAMIC DATA. Exercise time: 11 min. This is equivalent to: 11.3 METS. Resting heart rate: 57 bpm. Resting blood pressure: 122/74 mmHg. Resting O2 saturation: 97 %. Peak heart rate: 159 bpm. This is 101% of age predicted maximum heart rate response. Peak blood pressure: 166/80 mmHg. Exercise O2: 95%. Arrhythmias : intermitent junctional rhythm in recovery. Reason for termination: The test was stopped due to maximal effort. Symptoms: The patient experienced atypical symptoms of angina in immediate recovery with midsternal pinpoint chest pain. STRESS TEST ANALYSIS. Baseline ECG: SB 57/junctional rhythm. Stress EC mm horizontal STD. exercise induced ischemic ECG changes: Yes. Rhythm: Pt went into junctional rhythm in recovery. Blood pressure: Normal blood pressure response to exercise. Exercise tolerance: The patient has normal exercise tolerance adjusted for age and gender. Symptoms: + exercise induced symptoms. Impression: IMPRESSIONS: Stress ECG is suggestive of ischemia. The Maldonado Treadmill Score is 11-5(1)- 4(1)= +2 consistent with intermediate cardiovascular risk. Conclusion: Await nuclear images.
[2017-04-14] MEDS ORDERED: FAMOTIDINE 20 MG TAB PO PRN (14:48)
[2017-04-14] MEDS ORDERED: PANTOPRAZOLE SODIUM 40 MG TAB PO SCH (17:00)
[2017-04-14] MEDS ORDERED: ROSUVASTATIN CALCIUM 10 MG TAB PO SCH (21:00)
--- NOTE | 2017-04-15 03:30 | GDS ---
[f rep st] DISCHARGE SUMMARY DISCHARGE DIAGNOSES: 1. Chest pain. Suspected gastrointestinal in origin. 2. Coronary artery disease with recent LAD stent. 3. Asthma, stable. 4. Hyperlipidemia. 5. Hypothyroidism. CONSULTANTS: Dr. Mariella Toth, cardiology. IMAGING STUDIES/PROCEDURES: 1. Chest x-ray, April 13, 2017, showed no acute cardiopulmonary process. 2. Nuclear medicine myocardial perfusion scan April 14, 2017, showed a normal left ventricular eje ction fraction of 61% with no focal wall motion abnormalities and no evidence of ischemia or infarct . HISTORY: For details please see dictated history and physical dated April 13, 2017. In brief, the patient is a 62-year-old female with history of coronary artery disease and recent LAD stent placem ent, who presents to the emergency department with epigastric and chest burning sensation. She was admitted to the hospital for further evaluation. HOSPITAL COURSE: The patient admitted to the cardiac/telemetry unit. She was continued on her aspi rin and Plavix, as well as low-dose statin. She had 3 negative Troponins. Her EKGs were nonischemi c. Given her recent stent placement and presentation with chest pain, cardiology consult was obtain ed. She underwent a nuclear medicine stress test which was negative for ischemia. Ultimately, it i s thought her epigastric and chest burning is most likely a GI symptom. She will be continued on he r PPI therapy. I have also recommended p.r.n. Pepcid. We also discussed dietary modifications to m inimize acid reflux symptoms. At the time of discharge. She is chest pain free and vital signs are stable. DISPOSITION: Patient is discharged home in stable condition. FOLLOWUP: This patient is to follow up with: 1. Primary care. 2. Dr. Mariella toth, cardiology. DISCHARGE MEDICATIONS: Please see G.ho.st for complete updated outpatient medication list. She wi ll continue all outpatient medications as previously prescribed. New medications on discharge include Pepcid 20 mg p.o. daily p.r.n., #30, no refills. /[id number]/MODL
== END 2017-04-14 18:25 | disposition home or self-care (01) ==
LOC: F2W 21:25
PROVIDERS: ADMIT Internal Medicine; ATTEND Internal Medicine
DX: R07.9 Chest pain, unspecified (principal); I25.10 Atherosclerotic heart disease of native coronary artery without angina pectoris; J45.909 Unspecified asthma, uncomplicated; E78.5 Hyperlipidemia, unspecified; E03.9 Hypothyroidism, unspecified; Z95.5 Presence of coronary angioplasty implant and graft
CPT/HCPCS: 71020; 78452; 93005; 93017; A9500; G0378

== ENCOUNTER → 2017-05-07 | Outpatient (CLI) | payer BC | LOC: FIMAGING 14:16 | PROVIDERS: ATTEND Family Medicine | DX: Z12.31 Encounter for screening mammogram for malignant neoplasm of breast (principal) | CPT/HCPCS: G0202 ==

== ENCOUNTER → 2017-10-05 | Outpatient (CLI) | payer BC | LOC: FIMAGING 18:17 | PROVIDERS: ATTEND Specialist | DX: J18.1 Lobar pneumonia, unspecified organism (principal); J45.909 Unspecified asthma, uncomplicated ==

== ENCOUNTER → 2017-11-12 | Outpatient (CLI) | payer BC | LOC: FIMAGING 09:34 | PROVIDERS: ATTEND Specialist | DX: Z09 Encounter for follow-up examination after completed treatment for conditions other than malignant neoplasm (principal); J18.9 Pneumonia, unspecified organism ==

== ENCOUNTER → 2017-12-03 | Outpatient (CLI) | payer OTHER | LOC: FIMAGING 12:45 | PROVIDERS: ATTEND Specialist | DX: Z00.00 Encounter for general adult medical examination without abnormal findings (principal) ==

== ENCOUNTER → 2018-05-13 | Outpatient (CLI) | payer OTHER | LOC: FIMAGING 15:17 | PROVIDERS: ATTEND Family Medicine | DX: Z12.31 Encounter for screening mammogram for malignant neoplasm of breast (principal) ==

== ENCOUNTER 2018-05-19 07:06 | Emergency (ER) | payer OTHER ==
[2018-05-19] MEDS ORDERED: predniSONE 20 MG TAB PO ONE (07:50)
--- NOTE | 2018-05-19 07:50 | EDPHY ---
H & P Stated Complaint: wasp sting r face orbit and chest /stung yesterday Time Seen by Provider: 05/19/18 07:31 HPI/ROS: CHIEF COMPLAINT: Right facial swelling, bee sting HISTORY OF PRESENT ILLNESS: 63-year-old female with asthma presents with right facial swelling after AP sting. She was riding her bike yesterday morning and was stung by a bee or a wasp just under the right eye. Gradually increasing swelling and itchiness right side of face. She woke this morning and was unable to open her eye. Swelling increased this morning and extends to the right side of her neck and anterior chest wall. Took Benadryl this morning. No shortness of breath or dizziness. No history of severe allergic reaction or anaphylaxis. REVIEW OF SYSTEMS: complete 10 point ROS reviewed and is negative except for the noted elements in the HPI - Personal History Current Tetanus Diphtheria and Acellular Pertussis (TDAP): Unsure Tetanus Vaccine Date: < 10 years - Medical/Surgical History Hx Asthma: Yes Hx Chronic Respiratory Disease: No Hx Diabetes: No Hx Cardiac Disease: Yes Hx Renal Disease: No Hx Cirrhosis: No Hx Alcoholism: No Hx HIV/AIDS: No Hx Splenectomy or Spleen Trauma: No Other PMH: hypothyroid, anemia, asthma, cardiac stent - Social History Smoking Status: Never smoked Alcohol Use: Sober Drug Use: None Additional Social History: - Physical Exam Exam: General Appearance: Alert, pleasant Eyes: Pupils equal and round, no periorbital swelling ENT, Mouth: Right periorbital swelling extending to the right cheek and right side of neck, mucous membranes moist, no oral swelling Neck: mild swelling right side of neck, no stridor Respiratory: Mild swelling anterior chest wall, lungs are clear to auscultation , no wheezing Cardiovascular: Regular rate and rhythm Neurological: A&O, nonfocal, normal gait Skin: As above Extremities: No swelling Psychiatric: Mood and affect normal Constitutional: Initial Vital Signs Temperature (C) 37 C 05/19/18 07:10 Heart Rate 70 05/19/18 07:10 Respiratory Rate 17 05/19/18 07:10 Blood Pressure 120/67 05/19/18 07:10 O2 Sat (%) 98 05/19/18 07:10 O2 Delivery Mode Room Air Allergies/Adverse Reactions: gluten Allergy (Verified 04/13/17 17:55) ipratropium [From Atrovent] Allergy (Verified 04/13/17 17:55) lactose Allergy (Verified 04/13/17 17:55) Home Medications: Medication Instructions Recorded Albuterol [Proventil Inhaler HFA 1 - 2 puffs IH DAILY PRN 12/30/16 (*)] Calcium Citrate/Vitamin D3 1 tab PO DAILY 12/30/16 [Calcium Citrate - Vit D Caplet] Cetirizine [ZyrTEC 10 mg (*)] 10 mg PO DAILY 12/30/16 Fluticasone/Salmeter 500/50Mcg 1 puffs IH BID 12/30/16 [Advair 500/50 (*)] Magnesium Citrate 100 mg PO DAILY 12/30/16 Pramipexole Di-HCl [Mirapex 0.25 0.25 mg PO HS 12/30/16 mg (*)] Nitroglycerin [Nitrostat 0.4 mg 0.4 mg SL ONCE PRN #30 btl 12/31/16 (*)] Acetaminophen [Tylenol ES 500 mg 500 mg PO Q6 PRN 04/13/17 (*)] Aspirin EC [Aspirin EC 81 mg (*)] 81 mg PO DAILY 04/13/17 Cholecalciferol Vit D3 [Vitamin D3 1,000 units PO DAILY 04/13/17 (*)] L.acidoph,Paracasei, B.lactis 1 each PO DAILY 04/13/17 [Probiotic] Levothyroxine [Synthroid 88 mcg 88 mcg PO DAILY06 04/13/17 (*)] Omeprazole 40 mg PO DAILY@17 04/13/17 Rosuvastatin Calcium [Crestor 5mg] 2.5 mg PO HS 04/13/17 Famotidine [Pepcid 20 MG (*)] 20 mg PO DAILY PRN #30 tab 04/14/17 EPINEPHrine [Epipen 0.3 MG] 0.3 mg IM ONCE #2 syr 05/19/18 predniSONE 40 mg PO DAILY #8 tab 05/19/18 Medical Decision Making ED Course/Re-evaluation: This patient presents with a localized allergic reaction to a bee sting. No evidence of laryngeal edema or bronchospasm. Prednisone 40 mg orally given. Differential Diagnosis: Differential diagnosis includes though it is not limited to laryngeal edema, bronchospasm, hypotension, angioedema. Departure - Departure Disposition: Home, Routine, Self-Care Clinical Impression: Allergic reaction to bee sting Condition: Good Instructions: General Allergic Reaction (ED) Additional Instructions: Take Zyrtec in the morning and Benadryl at night while the swelling persists. Take prednisone as prescribed. Return for worsening symptoms or any concerns. Referrals: Jay Head MD [Primary Care Provider] - As per Instructions Prescriptions: EPINEPHrine [Epipen 0.3 MG] 0.3 mg IM ONCE #2 syr predniSONE 40 mg PO DAILY #8 tab
[2018-05-19 07:55] VITALS: BP 135/70
== END 2018-05-19 07:55 | disposition home or self-care (01) ==
DX: T63.461A Toxic effect of venom of wasps, accidental (unintentional), initial encounter (principal); J45.909 Unspecified asthma, uncomplicated; E03.9 Hypothyroidism, unspecified
CPT/HCPCS: J7512

== ENCOUNTER 2018-12-17 07:24 | Day surgery (SDC) | payer OTHER ==
[2018-12-17] MEDS ORDERED: diphenhydrAMINE 25 MG CAP PO ONE ×2 (07:27→08:03)
[2018-12-17] MEDS ORDERED: DIAZEPAM 5 MG TAB PO ONE (07:27)
[2018-12-17] MEDS ORDERED: NS 1,000 ML IV ONE (07:27)
[2018-12-17] MEDS ORDERED: ASPIRIN EC 325 MG TAB PO ONE ×2 (07:27→08:04)
[2018-12-17] MEDS ORDERED: FAMOTIDINE 20 MG TAB PO ONE (07:27)
[2018-12-17] MEDS ORDERED: FAMOTIDINE 20 MG TAB ONE (08:04)
[2018-12-17] MEDS ORDERED: DIAZEPAM 5 MG TAB ONE (08:04)
[2018-12-17 08:15] LABS: PLATELET COUNT 267 10^3/uL (150-400)
[2018-12-17 08:33] LABS: INR 1.09 (0.83-1.16); PROTIME(PATIENT) 13.7 SEC (12.0-15.0)
--- NOTE | 2018-12-17 08:45 | PDHPUP ---
History & Physical Update H&P update statement: This history and physical update is based on an assessment of the patient which was completed after admission or registration (within 24 hours), but prior to the surgery/procedure. H&P update: H&P reviewed & patient examined, no change in patient's condition since H&P completed
--- NOTE | 2018-12-17 08:46 | PDPROPOC ---
Sedation Plan of Care Sedation Plan of Care: vital signs stable, mental status noted, patient educated of risks, benefits, alternatives, patient can tolerate sedation ASA Classification: ASA 2 Planned drugs: fentanyl, midazolam Mallampati Score: Class 2 Mallampati Reference Image: Patient passed 3-3-2 rule?: Yes
[2018-12-17] MEDS ORDERED: LIDOCAINE 1% 300 MG/30 ML SDV ONE (08:51)
[2018-12-17] MEDS ORDERED: MIDAZOLAM 2 MG/2 ML VIAL ONE (08:52)
[2018-12-17] MEDS ORDERED: IOPAMIDOL (ISOVUE-370) 150 ML BTL IV ONE (08:52)
[2018-12-17] MEDS ORDERED: fentaNYL 100 MCG/2 ML INJ ONE (08:52)
[2018-12-17] MEDS ORDERED: ONDANSETRON 4 MG/2 ML VIAL IVP PRN (10:27)
[2018-12-17] MEDS ORDERED: OXYCODONE/APAP 5/325 TAB PO PRN (10:27)
[2018-12-17] MEDS ORDERED: ATROPINE SULFATE 1 MG/10 ML SYR IVP PRN (10:27)
[2018-12-17] MEDS ORDERED: HYDROCODONE/APAP 5/325 TAB PO PRN (10:27)
[2018-12-17] MEDS ORDERED: NITROGLYCERIN 0.4 MG BTL SL PRN (10:27)
[2018-12-17] MEDS ORDERED: LIDOCAINE 2% VISCOUS 15 ML UDCUP PO ONE (11:00)
[2018-12-17] MEDS ORDERED: HYOSCYAMINE SULFATE 0.125 MG TAB PO ONE (11:00)
[2018-12-17] MEDS ORDERED: MAG HYDROX/AL HYDROX/SIMETH 30 ML UDCUP PO ONE (11:00)
--- NOTE | 2018-12-17 11:22 | CPIP ---
[f rep st] INVASIVE CARDIAC PROCEDURE DATE OF PROCEDURE: 12/17/2018 PROCEDURES: 1. Coronary angiography. 2. Left ventriculography. INDICATIONS: 1. Known coronary artery disease status post stenting of left anterior descending coronary artery. 2. Exertional dyspnea and chest pain, concerning for class II angina. 3. Abnormal nuclear stress test as intermediate risk. ACCESS: Patient was prepped and draped in sterile fashion. 1% lidocaine was used to anesthetize the right inguinal region. A 6-Turkish introducer sheath was placed selectively into the right common fe moral artery via modified Seldinger technique. CORONARY ANGIOGRAPHY: A 6-Turkish JL4 was advanced to left main coronary artery, and images obtained. The left main coronary artery bifurcated into an LAD and circumflex coronary arteries. The left ma in coronary artery appeared normal. The left anterior descending coronary artery gave rise to one pr ominent branching diagonal branch. The left anterior descending coronary artery had a stent in the p roximal segment. The previously placed stent was widely patent with no evidence of significant ISR. The diagonal artery was free of any significant disease. The circumflex coronary artery is a modera te to large sized vessel. The circumflex coronary artery gave rise to 2 OM branches. The circumflex coronary artery had a discrete 20% stenosis in the proximal segment. A 6-Turkish JR4 was advanced to the right coronary artery, and images obtained. The right coronary artery is dominant. The right c oronary artery had mild luminal irregularities throughout. There was no stenosis greater than 10%. LEFT VENTRICULOGRAPHY: A 6-Turkish pigtail catheter was advanced in the left ventricle, and images ob tained. Left ventricle is normal size had normal systolic function with estimated ejection fraction 60%. Left ventricular end-diastolic pressure is 14 mmHg. COMPLICATIONS: None. CONCLUSIONS: 1. Patent left anterior descending stent. 2. Mild coronary artery disease without flow limitation. 3. Normal left ventricular size and systolic function. 4. Continue medical management. /[id number]/MODL
--- NOTE | 2018-12-18 15:13 | CPEKG ---
Test Reason : OPEN Blood Pressure : / mmHG Vent. Rate : 052 BPM Atrial Rate : 051 BPM P-R Int : 120 ms QRS Dur : 080 ms QT Int : 455 ms P-R-T Axes : 084 063 061 degrees QTc Int : 424 ms Sinus rhythm Consider left ventricular hypertrophy Confirmed by Mariella Yusuf ([id number]) on 12/18/2018 3:13:40 PM Referred By: Jay Head Confirmed By:Mariella Yusuf
--- NOTE | 2018-12-18 15:17 | CPEKG ---
Test Reason : OPEN Blood Pressure : / mmHG Vent. Rate : 054 BPM Atrial Rate : 055 BPM P-R Int : 119 ms QRS Dur : 084 ms QT Int : 471 ms P-R-T Axes : 075 068 068 degrees QTc Int : 447 ms Sinus rhythm Consider left ventricular hypertrophy Confirmed by Mariella Yusuf ([id number]) on 12/18/2018 3:16:55 PM Referred By: Jay Head Confirmed By:Mariella Yusuf
== END 2018-12-17 12:35 | disposition home or self-care (01) ==
LOC: FCATH 07:24
PROVIDERS: ATTEND Internal Medicine Cardiovascular Disease
PROC: 4A023N7 Measurement of Cardiac Sampling and Pressure, Left Heart, Percutaneous Approach (ICD-10-PCS; principal; 2018-12-17)
PROC: B2151ZZ Fluoroscopy of Left Heart using Low Osmolar Contrast (ICD-10-PCS; principal; 2018-12-17)
PROC: B2111ZZ Fluoroscopy of Multiple Coronary Arteries using Low Osmolar Contrast (ICD-10-PCS; principal; 2018-12-17)
DX: R06.09 Other forms of dyspnea (principal); R07.9 Chest pain, unspecified; R94.31 Abnormal electrocardiogram [ECG] [EKG]; I25.10 Atherosclerotic heart disease of native coronary artery without angina pectoris; Z95.5 Presence of coronary angioplasty implant and graft; E03.9 Hypothyroidism, unspecified; J45.909 Unspecified asthma, uncomplicated
CPT/HCPCS: C1760; J1644; J2250; J3010; Q9967

== ENCOUNTER → 2018-12-30 | Outpatient (CLI) | payer OTHER | LOC: FIMAGING 12:41 | PROVIDERS: ATTEND Specialist | DX: J45.909 Unspecified asthma, uncomplicated (principal) ==